=== PATIENT | female | born 1945 | race Caucasian/White ===

== ENCOUNTER → 2017-02-06 | Outpatient (CLI) | payer MEDICARE, OTHER ==
[2017-02-06 08:00] LABS: BUN/CREATININE RATIO 16 (0-10)
== END ==
LOC: LAB 07:14
PROVIDERS: Family Medicine
DX: E78.5 Hyperlipidemia, unspecified (principal)
CPT/HCPCS: 36415; 80053; 80061

== ENCOUNTER → 2021-01-11 | Outpatient (CLI) | payer MEDICARE, OTHER ==
[~2021-01-11] MED LIST: COLACE 100MG C100 MG PO; FLONASE 0.05% N16 GM; GAS-X125 M1 PO; LORTAB 5-325 M1 EACH PO; NORVASC2.5 MG PO; OMEPRAZOLE20 MG PO; VITAMIN D 11000 UNIT PO
[2021-01-11 07:40] LABS: HEMOGLOBIN 14.5 gm/dl (12.3-15.3); RED BLOOD COUNT 5.02 M/UL (4.00-5.10); WHITE BLOOD COUNT 6.8 K/UL (4.5-11.0)
[2021-01-11 08:11] LABS: BUN/CREATININE RATIO 16 (0-10)
[2021-01-12 09:14] LABS: VITAMIN D, 25-HYDROXY 42.1 ng/mL (30.0-100.0)
[2021-01-12 13:15] LABS: SARS COV-2 IGG AB Positive (Negative)
== END ==
LOC: LAB 07:11
PROVIDERS: Family Medicine
DX: E78.5 Hyperlipidemia, unspecified (principal); E55.9 Vitamin D deficiency, unspecified; K21.9 Gastro-esophageal reflux disease without esophagitis; Z79.899 Other long term (current) drug therapy; Z11.52 Encounter for screening for COVID-19
CPT/HCPCS: 36415; 80053; 80061; 82607; 83735; 85027; 86769

== ENCOUNTER → 2021-01-18 | Outpatient (CLI) | payer MEDICARE, OTHER | LOC: MAMO 09:30 | DX: Z12.31 Encounter for screening mammogram for malignant neoplasm of breast (principal) | CPT/HCPCS: 77063; 77067 ==

== ENCOUNTER → 2021-05-13 | Outpatient (CLI) | payer MEDICARE, OTHER ==
[2021-05-13 07:38] LABS: HEMOGLOBIN 14.4 gm/dl (12.3-15.3); WHITE BLOOD COUNT 5.8 K/UL (4.5-11.0)
[2021-05-13 07:56] LABS: BUN/CREATININE RATIO 15 (0-10)
== END ==
LOC: LAB 07:05
PROVIDERS: Family Medicine
DX: E78.5 Hyperlipidemia, unspecified (principal); E55.9 Vitamin D deficiency, unspecified; I10 Essential (primary) hypertension; K21.9 Gastro-esophageal reflux disease without esophagitis; Z79.899 Other long term (current) drug therapy; R53.83 Other fatigue
CPT/HCPCS: 36415; 80053; 80061; 82607; 83735; 84443; 85027

== ENCOUNTER → 2021-11-02 | Outpatient (CLI) | payer MEDICARE, OTHER ==
[2021-11-03 07:11] LABS: A/G RATIO 1.9 (1.2-2.2); ALKALINE PHOSPHATASE, S 85 IU/L (44-121); ALT (SGPT) 16 IU/L (0-32); AST (SGOT) 19 IU/L (0-40); BILIRUBIN, TOTAL 0.4 mg/dL (0.0-1.2); BUN 14 mg/dL (8-27); BUN/CREATININE RATIO 16 (12-28); CALCIUM, SERUM 9.6 mg/dL (8.7-10.3); CARBON DIOXIDE, TOTAL 23 mmol/L (20-29); CHLORIDE, SERUM 102 mmol/L (96-106); CREATININE, SERUM 0.85 mg/dL (0.57-1.00); GLOBULIN, TOTAL 2.5 g/dL (1.5-4.5); GLUCOSE, SERUM 82 mg/dL (65-99); POTASSIUM, SERUM 4.5 mmol/L (3.5-5.2); PROTEIN, TOTAL, SERUM 7.2 g/dL (6.0-8.5); SODIUM, SERUM 142 mmol/L (134-144)
[2021-11-03 08:14] LABS: CHOLESTEROL, TOTAL 228 mg/dL (100-199); HDL CHOLESTEROL 72 mg/dL (>39); LDL CHOLESTEROL CALC 142 mg/dL (0-99); MAGNESIUM 2.4 mg/dL (1.6-2.3); T. CHOL/HDL RATIO 3.2 ratio (0.0-4.4); TRIGLYCERIDES 80 mg/dL (0-149); VITAMIN D, 25-HYDROXY 37.6 ng/mL (30.0-100.0)
== END ==
LOC: LAB 07:04
PROVIDERS: Family Medicine
DX: E78.5 Hyperlipidemia, unspecified (principal); I10 Essential (primary) hypertension; E55.9 Vitamin D deficiency, unspecified; Z79.899 Other long term (current) drug therapy
CPT/HCPCS: 36415; 80053; 80061; 82607; 83735

== ENCOUNTER → 2022-01-07 | Day surgery (SDC) | payer MEDICARE, OTHER ==
[~2022-01-07] MED LIST changes: +CALCIUM PO; +CRESTOR10 MG PO; +ESCITALOPRAM OXA5 MG PO; +VITAMIN B12 PO
== END | disposition home or self-care (01) ==
LOC: OR 06:31
DX: R19.5 Other fecal abnormalities (principal); K21.9 Gastro-esophageal reflux disease without esophagitis; E78.5 Hyperlipidemia, unspecified; I10 Essential (primary) hypertension; M81.0 Age-related osteoporosis without current pathological fracture; Z88.2 Allergy status to sulfonamides; Z79.899 Other long term (current) drug therapy; Z20.822 Contact with and (suspected) exposure to COVID-19
CPT/HCPCS: J2704; J7030

== ENCOUNTER → 2022-02-03 | Outpatient (CLI) | payer MEDICARE, OTHER ==
[2022-02-03 07:56] LABS: BUN/CREATININE RATIO 14 (0-10)
== END ==
LOC: LAB 07:08
PROVIDERS: Family Medicine
DX: E78.5 Hyperlipidemia, unspecified (principal)
CPT/HCPCS: 36415; 80053; 80061; 83735

== ENCOUNTER → 2022-03-11 | Outpatient (CLI) | payer MEDICARE, OTHER | LOC: MAMO 14:22 | DX: Z12.31 Encounter for screening mammogram for malignant neoplasm of breast (principal) | CPT/HCPCS: 77063; 77067 ==